=== PATIENT | female | born 1975 ===

== ENCOUNTER 2018-05-30 11:00 | Outpatient (CLI) | payer OTHER | END 2018-05-30 11:01 | disposition home or self-care (01) | LOC: C.MAMMO 11:00 | DX: Z12.31 Encounter for screening mammogram for malignant neoplasm of breast (principal) ==

== ENCOUNTER 2018-06-14 12:44 | Outpatient (CLI) | payer OTHER | END 2018-06-14 12:45 | disposition home or self-care (01) | LOC: C.MAMMO 12:44 ==